=== PATIENT | male | born 1970 | race Caucasian/White ===

== ENCOUNTER → 2020-10-01 09:39 | Outpatient (BNVA) | payer SELFPAY | PROVIDERS: Family Provider Family Medicine; PCP Family Medicine; Referring Provider Family Medicine; Visit Provider Specialist | DX: M25.511 Pain in right shoulder (principal) | CPT/HCPCS: 73030 ==

== ENCOUNTER 2020-10-08 14:27 | Outpatient (RCR) | payer OTHER, SELFPAY | END 2020-10-29 23:59 | disposition home or self-care (01) | LOC: SPT 14:27 | PROVIDERS: Family Provider Family Medicine; PCP Family Medicine; Referring Provider Specialist; Visit Provider Specialist | DX: S41.011D Laceration without foreign body of right shoulder, subsequent encounter (principal); X58.XXXD Exposure to other specified factors, subsequent encounter | CPT/HCPCS: 97110; 97161 ==

== ENCOUNTER 2020-10-30 06:00 | Outpatient (RCR) | payer OTHER, SELFPAY | END 2020-11-28 23:59 | disposition home or self-care (01) | LOC: SPT 06:00 | PROVIDERS: Family Provider Family Medicine; PCP Family Medicine; Referring Provider Specialist; Visit Provider Specialist | DX: M75.101 Unspecified rotator cuff tear or rupture of right shoulder, not specified as traumatic (principal); M25.511 Pain in right shoulder | CPT/HCPCS: 97110 ==

== ENCOUNTER 2022-06-18 12:30 | Emergency (ER) | payer OTHER, SELFPAY ==
[2022-06-18 12:51] VITALS: BP 168/84; PULSE 52; RESP 14; TEMP 36.8; O2SAT 99; BMI 28.1
--- NOTE | 2022-06-18 13:04 | CTR_ITS ---
PROCEDURE INFORMATION: Exam: CT Head Without Contrast Exam date and time: 06/18/2022 1:10 PM Age: 51 years old Clinical indication: Visual disturbance; Patient HX: New onset, no recent trauma; Additional info: Vision changes TECHNIQUE: Imaging protocol: Computed tomography of the head without contrast. Radiation optimization: All CT scans at this facility use at least one of these dose optimization techniques: automated exposure control; mA and/or kV adjustment per patient size (includes targeted exams where dose is matched to clinical indication); or iterative reconstruction. COMPARISON: No relevant prior studies available. RADIATION DOSE METRICS: Total DLP (mGy-cm): 1085.68 FINDINGS: Brain: Normal. No hemorrhage. Unremarkable white matter. No mass effect. Ventricles: No ventriculomegaly. Paranasal sinuses: Visualized sinuses are unremarkable. No fluid levels. Mastoid air cells: Visualized mastoid air cells are well aerated. Bones/joints: No acute abnormality. No acute fracture. Soft tissues: Unremarkable. CT/CT head wo con* [id number] IMPRESSION: No acute intracranial abnormality identified.
[2022-06-18 13:08] VITALS: BP 141/84; PULSE 100; RESP 14; O2SAT 97
[2022-06-18 13:37] LABS: Basophils % 0.3 %; Eosinophils # 0.2 10^3/uL (0.0-0.8); Eosinophils % 2.2 %; Hematocrit 42.8 % (42.0-52.0); Hemoglobin 13.9 g/dL (11.7-16.6); Lymphocytes # 2.4 10^3/uL (0.8-4.8); Lymphocytes % 30.4 %; Mean Corpuscular HGB Conc 32.5 g/dL (30.0-36.0); Mean Corpuscular Hemoglobin 28.9 pg (28.0-34.0); Mean Platelet Volume 10.1 fL (7.4-10.4); Monocytes # 0.5 10^3/uL (0.2-0.9); Monocytes % 6.6 %; Neutrophils # 4.73 10^3/uL (1.8-7.7); Neutrophils % 60.2 %; Nucleated Red Blood Cells % 0 %; Platelet Count 309 10^3/cmm (130-400); Red Blood Count 4.81 10^6/uL (4.1-5.3); Red Cell Distribution Width 13.4 % (12.1-15.1); White Blood Count 7.8 10^3/uL (4.0-10.0)
[2022-06-18 13:50] LABS: Alanine Aminotransferase 18 U/L (0-41); Albumin Level 4.6 g/dL (3.5-5.2); Alkaline Phosphatase 88 U/L (40-130); Aspartate Amino Transferase 22 U/L (0-40); Blood Urea Nitrogen 15 mg/dL (6-20); Calcium 9.6 mg/dL (8.5-10.5); Carbon Dioxide 26 mmol/L (22-29); Chloride 101 mmol/L (98-107); Glomerular Filtration Rate 79.1 mL/min (90-130); Glucose 97 mg/dL (65-115); Osmolality Calculated 289 mOsm/kg (285-295); Sodium 139 mmol/L (136-145); Total Bilirubin 0.3 mg/dL (0.15-1.2); Total Protein 7.6 g/dL (6.6-8.7)
[2022-06-18 14:18] LABS: Add Urine Microscopic? NO; Charge for UA Resulting for Rev
[2022-06-18 14:25] LABS: Bilirubin Urine Neg (Negative); Blood Urine Neg (Negative); Glucose Urine UA Norm (Normal); Ketones Urine Negative (Negative); Leukocyte Esterase Urine Negative (Negative); Nitrate Urine Negative (Negative); Protein Urine Neg (Negative); Urine Appearance Clear (CLEAR); Urine Color Yellow (Yellow); Urobilinogen Urine Norm (Negative); pH Urine 6 (5-7)
--- NOTE | 2022-06-18 15:01 | ED_ITS ---
HPI - Eye Problem General: Chief complaint: Eye Problems Stated complaint: seeing double Time Seen by Provider: 06/18/22 13:04 Source: patient Mode of arrival: ambulatory Limitations: no limitations History of Present Illness: 51-year-old male presents with a complaint of double vision that began around 11:00 today. He has a mild headache associated with it several years ago he had cranial nerve palsy that precipitated a similar episode he is notices only when he looks at the extremes of his ocular motion so looking extreme up or down or laterally triggers a double vision minimally so when he is looking to straightforward no fall no trauma to the head he is not any blood thinners chief complaint: vision change Onset (ago): hour(s) Onset description: gradual Duration: constant Eye Symptoms: other (Double vision) Place: home Mechanism: none Severity: mild Associated symptoms: Denies cough, fever(s), headache(s), nausea, neck pain, numbness, rhinorrhea, short of breath, vomiting or weakness Treatments Prior to Arrival: none Review of Systems Const: Denies: fever(s), chills, fatigue or malaise ENMT: Denies: throat pain, ear or mastoid pain, nasal discharge or nasal congestion Card: Denies: chest pain, edema, dyspnea on exertion or orthopnea Resp: Denies: dyspnea, productive cough or non-productive cough GI: Denies: abdominal pain, nausea or vomiting : Denies: flank pain, difficulty urinating, dysuria, urinary frequency or urinary urgency Musc: Denies: neck pain Skin/Breast: Denies: rash or pruritus Neuro: Denies: headache(s), numbness in extremities, weakness in extremities, sensory changes, lack of coordination, difficulty walking, frequent falls, dizziness, vertigo or Slurred speech present [facility] PFSH: Medical History (Updated 06/18/22 @ 16:22 by Hugo Manning DO) No pertinent past medical history Surgical History (Updated 06/18/22 @ 15:03 by Hugo Manning DO) No pertinent past surgical history Social History Smoking and tobacco status: never smoked Alcohol intake: current Alcohol intake frequency: holidays/special occasions only Physical Exam Const: GENERAL APPEARANCE: cooperative and comfortable ORIENTATION/CONSCIOUSNESS: Yes awake, Yes oriented to person, Yes oriented to place and Yes oriented to time HENMT: COMMON NORMALS: normocephalic, atraumatic, hearing grossly normal bilaterally, external ears normal, EAC's normal, TM's normal bilaterally, Normal nasal mucous membranes and turbinates present, moist oral mucous membranes and oropharynx normal HEAD & SCALP: normocephalic and atraumatic NOSE: Normal nasal mucous membranes and turbinates present EXTERNAL EAR: Yes external ears normal EXTERNAL AUDITORY CANAL: EAC's normal TYMPANIC MEMBRANE: TM's normal bilaterally Eye: COMMON NORMALS: Equal, round and reactive pupils present, conjunctivae normal and no scleral icterus CONJUNCTIVA: Yes conjunctivae normal PUPIL: Yes Equal, round and reactive pupils present OTHER: Appears to be a slight lag with medial lateral extraocular movements into right eye. Neck/C-Spine: COMMON NORMALS: full ROM, no lymphadenopathy, supple and no JVD Lymph: LYMPHATIC: no lymphadenopathy noted and no lymphedema noted Resp: COMMON NORMALS: normal respiratory effort, No retractions, No use of accessory muscles and clear to auscultation bilaterally AUSCULTATION: clear to auscultation bilaterally Cardio: COMMON NORMALS: no JVD, regular rate, regular rhythm and No murmurs present (Cardio) RATE: regular rate RHYTHM: regular rhythm GI: COMMON NORMALS: Soft to palpation and No hepatosplenomegaly present AUSCULTATION: Yes normoactive bowel sounds PALPATION: Yes Soft to palpation, No Tenderness to palpation present (GI), No Guarding due to palpation present (GI) and Yes No hepatosplenomegaly present Extremity: COMMON NORMALS: normal to inspection, capillary refill normal, no clubbing, cyanosis or edema, no calf tenderness and no pedal edema Neuro: SENSORIUM/ORIENTATION: Yes oriented to person, Yes oriented to place and Yes oriented to time Skin: COMMON NORMALS: no rashes or lesions noted GENERAL SKIN EXAM: no rashes or lesions noted Course Vital Signs: Vital signs: Vital Signs Temperature 98.3 F 06/18/22 12:51 Pulse Rate 100 06/18/22 13:08 Respiratory Rate 14 06/18/22 13:08 Blood Pressure 141/84 06/18/22 13:08 Pulse Oximetry 97 06/18/22 13:08 Oxygen Delivery Me thod 06/18/22 13:08 MDM - Eye Problem Medical Decision Making CT of the head negative. Patient has no focal neurologic deficits but appears to have a cranial nerve palsy we will get him set up to see ophthalmology he would prefer to go home and follow-up with him later next week. Medical Records I reviewed the patient's medical records. Lab Data I reviewed the patient's lab results. 06/18/22 13:27 06/18/22 13:[address] 06/18/22 13:04 IMPRESSION: No acute intracranial abnormality identified. Laboratory Results WBC 7.8 10^3/uL (4.0-10.0) 06/18/22 13: RBC 4.81 10^6/uL (4.1-5.3) 06/18/22 13: Hgb 13.9 g/dL (11.7-16.6) 06/18/22 13: Hct 42.8 % (42.0-52.0) 06/18/22 13: MCV 89.0 fl (80-94) 06/18/22 13: MCH 28.9 pg (28.0-34.0) 06/18/22 13:27 MCHC 32.5 g/dL (30.0-36.0) 06/18/22 13: RDW 13.4 % (12.1-15.1) 06/18/22 13: Plt Count 309 10^3/cmm (130-400) 06/18/22 13: MPV 10.1 fL (7.4-10.4) 06/18/22 13: Neut % (Auto) 60.2 % 06/18/22 13: Lymph % (Auto) 30.4 % 06/18/22 13:27 Moore % (Auto) 6.6 % 06/18/22 13:27 Eos % (Auto) 2.2 % 06/18/22 13: Baso % (Auto) 0.3 % 06/18/22 13:27 Neut # (Auto) 4.73 10^3/uL (1.8-7.7) 06/18/22 13: Lymph # (Auto) 2.4 10^3/uL (0.8-4.8) 06/18/22 13:27 Moore # (Auto) 0.5 10^3/uL (0.2-0.9) 06/18/22 13:27 Eos # (Auto) 0.2 10^3/uL (0.0-0.8) 06/18/22 13:27 Baso # (Auto) 0.0 10^3/uL (0.0-0.1) 06/18/22 13:27 Nucleated RBC % (auto) 0 % 06/18/22 13:27 Nucleated RBCs # 0.0 /100WBC 06/18/22 13:27 Sodium 139 mmol/L (136-145) 06/18/22 13:27 Potassium 4.0 mmol/L (3.5-5.1) 06/18/22 13:27 Chloride 101 mmol/L (98-107) 06/18/22 13:27 Carbon Dioxide 26 mmol/L (22-29) 06/18/22 13:27 Anion Gap 16.0 (5-19) 06/18/22 13:27 BUN 15 mg/dL (6-20) 06/18/22 13:27 Creatinine 1.0 mg/dL (0.7-1.2) 06/18/22 13:27 GFR Calculation 79.1 mL/min (90-130) L 06/18/22 13:27 Glucose 97 mg/dL (65-115) 06/18/22 13:27 Calculated Osmolality 289 mOsm/kg (285-295) 06/18/22 13:27 Calcium 9.6 mg/dL (8.5-10.5) 06/18/22 13:27 Total Bilirubin 0.3 mg/dL (0.15-1.2) 06/18/22 13:27 AST 22 U/L (0-40) 06/18/22 13:27 ALT 18 U/L (0-41) 06/18/22 13:27 Alkaline Phosphatase 88 U/L (40-130) 06/18/22 13:27 Total Protein 7.6 g/dL (6.6-8.7) 06/18/22 13:27 Albumin 4.6 g/dL (3.5-5.2) 06/18/22 13:27 Globulin 3.0 g/dL (1.3-4.6) 06/18/22 13:27 Urine Color Yellow (Yellow) 06/18/22 13:55 Urine Appearance Clear (CLEAR) 06/18/22 13:55 Urine pH 6 (5-7) 06/18/22 13:55 Ur Specific [place] 1.010 (1.005-1.030) 06/18/22 13:55 Urine Protein Neg (Negative) 06/18/22 13:55 Urine Glucose (UA) Norm (Normal) 06/18/22 13:55 Urine Ketones Negative (Negative) 06/18/22 13:55 Urine Blood Neg (Negative) 06/18/22 13:55 Urine Nitrate Negative (Negative) 06/18/22 13:55 Urine Bilirubin Neg (Negative) 06/18/22 13:55 Urine Urobilinogen Norm mg/dL (Negative) 06/18/22 13:55 Ur Leukocyte Esterase Negative (Negative) 06/18/22 13:55 Discharge Plan Discharge Patient Disposition: Home Clinical Impression: Visual disturbance, Cranial nerve III palsy Condition: Stable Prescriptions: No Action propranolol 20 mg tablet 60 mg PO .weekly and as needed Qty: 90 6RF Discharge Orders: Discharge ED (Routine); Ordered 06/18/22 Ordered By: Hugo Manning Referrals: Keenan Handy MD [Primary Care Provider] - Discharge Diet: Usual diet Discharge Activity: Increase activity as tolerated Patient Instructions: Opioid Safety, Pain Management Activity Restrictions/Additional Instructions: Follow-up with construction contractor if there are any worsening or change in symptoms return. Coding Level of Care Code ED Programs Manager for Perry Cisneros Exam Comprehensive NIH stroke score NIHSS Level Of Consciousness - 1a: 0 Level Of Consciousness Questions - 1b: Both Correct Level Of Consciousness Commands - 1c: Both Correct Best Gaze - 2: Normal Visual [place] - 3: No Visual Loss Facial Palsy - 4: Normal Motor Arm Right - 5: No Drift Motor Arm Left - 5: No Drift Motor Leg Right - 6: No Drift Motor Leg Left - 6: No Drift Limb Ataxia - 7: Absent Sensory - 8: Normal Best Language - 9: No Aphasia Dysarthia - 10: Normal Extinction And Inattention - 11: 0 Score Total Score: 0
--- NOTE | 2022-06-21 13:35 | DCPLANNER ---
Addendum entered by Ana Meehan 06/22/22 11:18: Patient had a follow up appointment scheduled 06.21.[address] Acosta - patient did attend appointment. Original Note: medication care manager had message to schedule a follow up appointment for patient with ophthalmology. medication care manager faxed patients information to the office of Dr. Acosta. Patients information will be reviewed. Clinic will call patient with appointment information.
== END 2022-06-18 16:30 | disposition home or self-care (01) ==
PROVIDERS: Emergency Provider Family Medicine; PCP Family Medicine
DX: H53.9 Unspecified visual disturbance (principal); H49.00 Third [oculomotor] nerve palsy, unspecified eye
CPT/HCPCS: 36415; 70450; 80053; 81003; 85025; 99284

== ENCOUNTER → 2022-11-17 08:19 | Outpatient (BNVA) | payer OTHER, SELFPAY | PROVIDERS: PCP Family Medicine; Visit Provider Family Medicine | DX: Z00.00 Encounter for general adult medical examination without abnormal findings (principal) | CPT/HCPCS: 80053; 80061 ==

== ENCOUNTER 2022-12-16 15:00 | Outpatient (CLI) | payer OTHER, SELFPAY | END 2022-12-16 15:01 | disposition home or self-care (01) | LOC: SLEEP 12-20 07:36 | PROVIDERS: PCP Family Medicine; Visit Provider Family Medicine | DX: R40.0 Somnolence (principal); G47.33 Obstructive sleep apnea (adult) (pediatric) | CPT/HCPCS: G0399 ==